=== PATIENT | female | born 1945 | race Caucasian/White ===

== ENCOUNTER 2019-01-12 07:17 | Day surgery (SDC) | payer BC, MEDICARE ==
[2019-01-12] MEDS ORDERED: Propofol 200 MG/20 ML SDV ONE (07:20)
[2019-01-12] MEDS ORDERED: Midazolam 1 MG/ML 2 ML SDV ONE (07:20)
[2019-01-12] MEDS ORDERED: fentaNYL 100 MCG/2 ML SDV ONE (07:20)
[2019-01-12] MEDS ORDERED: Sodium Chloride 0.9% 1,000 ML IV SCH (07:45)
--- NOTE | 2019-01-12 13:48 | OR ---
DATE OF PROCEDURE: 01/12/2019 SURGEON: Roberto Amin MD PROCEDURE: Colonoscopy. FINDINGS: Diverticulosis, mild, (approximately only 4-5 diverticula noted). COMPLICATIONS: None. HUMAN SERVICES MANAGER: None. PREOPERATIVE DIAGNOSIS: Screening colonoscopy. POSTOPERATIVE DIAGNOSIS: Screening colonoscopy. RISKS: Risks, benefits, alternatives, limitations including, but not limited to infection, bleeding, and perforation were explained to the patient, who wished to proceed. PROCEDURE IN DETAIL: The patient was placed in left lateral decubitus position. Digital rectal exam was performed without abnormality. Scope was introduced and advanced atraumatically to the ileocecal valve. Scope was brought back through the ascending, transverse, descending colon, and retroflexed. No evidence of old or new blood and no masses. The diverticulosis is described as mild and limited to sigmoid colon only. No abnormalities on retroflexion. The patient tolerated the procedure well. Roberto Amin MD /[id number]
== END 2019-01-12 10:12 | disposition home or self-care (01) ==
LOC: JP.SDS 07:17
PROVIDERS: ATTEND Surgery
DX: Z12.11 Encounter for screening for malignant neoplasm of colon (principal); K57.30 Diverticulosis of large intestine without perforation or abscess without bleeding
CPT/HCPCS: G0121; J2250; J2704; J3010; J7030

== ENCOUNTER 2019-01-25 19:52 | Emergency (ER) | payer MEDICARE ==
[2019-01-25] MEDS ORDERED: Aspirin 81 MG Tab.Chew PO ONE (20:35)
[2019-01-25] MEDS ORDERED: Nitroglycerin 0.4 MG Tab.SL SL PRN (20:35)
[2019-01-25] MEDS ORDERED: Morphine 4 MG/ML Syringe IVPUSH PRN (20:35)
[2019-01-25] MEDS ORDERED: Ondansetron 4 MG/2 ML SDV IVPUSH ONE (20:39)
[2019-01-25] MEDS ORDERED: Sodium Chloride 0.9% 1,000 ML IV SCH ×2 (20:45→23:00)
[2019-01-25] MEDS ORDERED: Piperacillin/Tazobactam 4.5 GM in Sodium Chloride 0.9% 100 ML IV SCH (21:45)
[2019-01-25] MEDS ORDERED: Piperacillin/Tazobactam 4.5 GM Vial ONE (22:11)
[2019-01-25] MEDS ORDERED: Sodium Chloride 0.9% 100 ML ONE (22:12)
[2019-01-25] MEDS ORDERED: HYDROmorphone 1 MG/ML Syringe IVPUSH ONE (22:19)
--- NOTE | 2019-01-25 22:23 | CRLCT ---
INDICATION: Acute onset chest and abdominal pain TECHNIQUE: CT chest, abdomen and pelvis acquired without IV contrast. COMPARISON: None FINDINGS: Chest: Cardiovascular structures: Heart size is normal. Thoracic aorta and main pulmonary artery are normal in caliber. Mediastinum and paras: No mass or adenopathy. There is a 1.6 cm soft tissue nodule which appears to arise from the left thyroid lobe. Lungs: Clear. Pleura and pericardium: No effusions. Chest wall and axilla: No mass or adenopathy. Bones: Unremarkable for age. Abdomen and Pelvis: Liver: Unremarkable. Spleen: Unremarkable. Pancreas: Peripancreatic fat stranding and fluid. No pancreatic calcifications. Gallbladder and bile ducts: Moderate distention of the gallbladder. 2.0 cm round hyperdensity within the gallbladder. Adrenal glands: Unremarkable. Kidneys: Unremarkable. GI tract: Colonic diverticulosis. Appendix is not seen. Vascular structures: Unremarkable. Lymph nodes: Unremarkable. Miscellaneous: Unremarkable. No free air or significant free fluid. Pelvic Organs: 2.3 cm round hyperdensity on the left superior aspect of the uterus. 1.7 cm round hypodensity in the left adnexa.. Bones: Unremarkable for age. 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 IMPRESSION: Acute pancreatitis. Recommend CT abdomen with IV contrast to assess for potential pancreatic necrosis or peripancreatic phlegmon or pseudocyst. Moderate distention of the gallbladder. Round hyperdensity in the gallbladder likely represents a gallstone. Recommend right upper quadrant ultrasound for further evaluation. Colonic diverticulosis. Cystic lesion in the left adnexa. Recommend nonemergent pelvic ultrasound for further evaluation. Small uterine fibroid. Likely left thyroid lobe nodule. Recommend nonemergent thyroid ultrasound for further characterization. Please note that all CT scans at this facility use dose modulation, iterative reconstruction, and/or weight-based dosing when appropriate to reduce radiation dose to as low as reasonably achievable. Dictated by Kari Siddiqi MD @ Jan 25 2019 10:12PM Signed by Dr. Kari Siddiqi @ Jan 25 2019 10:22PM
--- NOTE | 2019-01-25 23:08 | EDM.PDOC ---
ED HPI GENERAL MEDICAL PROBLEM - General Chief Complaint: Abdominal Pain Stated Complaint: STOMACH PAIN, SIDE AND BACK PAIN Time Seen by Provider: 01/25/19 20:21 Source of Information: Reports: Patient, Family () History Limitations: Reports: No Limitations - History of Present Illness INITIAL COMMENTS - FREE TEXT/NARRATIVE: chief complaint: abdominal pain This is a 73 year old female present to the ER for evaluation of abdominal pain. She reports intermittent abdominal pain for 2 weeks. This morning severe abdominal pain with nausea and vomiting. This evening reports has been vomiting all day, having 10 out of 10 pain. She reports had a physical last month for a colonoscopy. Is "healthy as a horse ", only take calcium vitamin. denies any alcohol use, drugs or smoking. only "bad" habit, drinks coffee. retired [employer]. Onset: Sudden (today nausea, vomiting, severe 10 out of 10 abdominal pain. radiates to back.), Gradual (2 week history of abdominal pain. ) Duration: Getting Worse Location: Reports: Abdomen, Radiates to (back) Quality: Reports: Sharp, Stabbing, Throbbing, Other (rates pain at 10 out of 10) Severity: Severe Improves with: Reports: None Worsens with: Reports: None Context: Reports: Other (abdominal pain for 2 weeks.) Associated Symptoms: Reports: Fever/Chills (chills, no fever), Loss of Appetite , Nausea/Vomiting middle abd Pain Score (Numeric/FACES): 10 - Related Data Allergies Allergy/AdvReac Type Severity Reaction Status Date / Time No Known Allergies Allergy Verified 01/25/19 20:30 Home Meds: Home Meds NK [No Known Home Meds] 01/27/14 [History] Past Medical History HEENT History: Reports: Cataract, Impaired Vision Other HEENT History: wears glasses Gastrointestinal History: Reports: Colon Polyp Genitourinary History: Reports: None 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: Musculoskeletal History: Reports: Arthritis - Infectious Disease History Infectious Disease History: Reports: Chicken Pox, Measles - Past Surgical History GI Surgical History: Reports: Colonoscopy, Polypectomy Female Surgical History: Reports: Breast Biopsy, Tubal Ligation Social & Family History - Family History HEENT: Reports: Glaucoma Cardiac: Reports: Other (See Below) Other Cardiac Family History: artificial heart valve-brother Musculoskeletal: Reports: Arthritis Neurological: Reports: Neuropathy, Diabetic, Other (See Below) Other Neurological Family History: TBI Endocrine/Metabolic: Reports: Diabetes, type II, IDDM Oncologic: Reports: Lung - Tobacco Use Smoking Status *Q: Never Smoker - Caffeine Use Caffeine Use: Reports: Coffee - Recreational Drug Use Recreational Drug Use: No - Living Situation & Occupation Living situation: Reports: Occupation: Retired (lives with her in [place], [place].) ED ROS GENERAL - Review of Systems Review Of Systems: See Below Constitutional: Reports: Chills, Decreased Appetite, Other (abdominal pain) HEENT: Reports: Glasses Respiratory: Reports: No Symptoms Cardiovascular: Reports: No Symptoms Endocrine: Reports: No Symptoms GI/Abdominal: Reports: Abdominal Pain, Decreased Appetite (nausea and vomiting) , Nausea, Vomiting, Other (bowel movement x 3 today, brown soft formed.) : Reports: Flank Pain (right flank and mid back pain) Musculoskeletal: Reports: Back Pain (mid back pain) Skin: Reports: No Symptoms Neurological: Reports: No Symptoms Psychiatric: Reports: No Symptoms Hematologic/Lymphatic: Reports: No Symptoms ED EXAM, GENERAL - Physical Exam Exam: See Below Exam Limited By: No Limitations General Appearance: Alert, Severe Distress Eye Exam: Bilateral Eye: Normal Inspection, PERRL Ears: Normal External Exam Ear Exam: Bilateral Ear: Auricle Normal, Canal Normal, TM normal Nose: Normal Inspection, Normal Mucosa, No Blood Throat/Mouth: Normal Inspection, Normal Lips, Normal Teeth, Normal Gums, Normal Oropharynx, Normal Voice, No Airway Compromise Head: Atraumatic, Normocephalic Neck: Normal Inspection, Supple, Non-Tender, Full Range of Motion Respiratory/Chest: No Respiratory Distress, Lungs Clear, Normal Breath Sounds, No Accessory Muscle Use, Chest Non-Tender Cardiovascular: Normal Peripheral Pulses, Regular Rate, Rhythm, No Murmur, Bradycardia (rate upper 40's low 50's.), Other (1+ edema of lower legs) Peripheral Pulses: 2+: Radial (L), Radial (R), Dorsalis Pedis (L), Dorsalis Pedis (R) GI/Abdominal: Distended, Guarding, Rebound, Tender, Abnormal Bowel Sounds ( hypoactive) (Female) Exam: Deferred Rectal (Female) Exam: Deferred Back Exam: Normal Inspection, Full Range of Motion Extremities: Normal Range of Motion, Pedal Edema (1+ edema of lower legs). No: Park's Sign Neurological: No Motor/Sensory Deficits Psychiatric: Normal Affect, Normal Mood Skin Exam: Warm, Dry, Intact, Normal Color, No Rash Lymphatic: No Adenopathy EKG INTERPRETATION EKG Date: 01/25/19 Rhythm: Other (bradycardia) Course - Vital Signs Last Recorded V/S: Last Vital Signs Temp 30.6 C L 01/25/19 20:32 Pulse 48 L 01/25/19 20:32 Resp 16 01/25/19 20:32 BP 164/66 H 01/25/19 20:32 Pulse Ox 98 01/25/19 20:32 - Orders/Labs/Meds Orders: Active Orders 24 hr Category Date Time Status Cardiac Education [RC] Click to Edit Care 01/25/19 20:35 Inactive Cardiac Monitoring [RC] .As Directed Care 01/25/19 20:35 Active EKG Documentation Completion [RC] ASDIRECTED Care 01/25/19 20:35 Active Oxygen Therapy [RC] ASDIRECTED Care 01/25/19 20:35 Active CULTURE BLOOD [BC] Urgent Lab 01/25/19 21:16 Received CULTURE BLOOD [BC] Urgent Lab 01/25/19 21:16 Received UA W/MICROSCOPIC [URIN] Urgent Lab 01/25/19 20:23 Ordered Morphine Med 01/25/19 20:35 Active 4 mg IVPUSH Q10M PRN Piperacillin/Tazobactam [Zosyn] 4.5 gm Med 01/25/19 21:45 Active Sodium Chloride 0.9% [Normal Saline] 100 ml IV Q6H Sodium Chloride 0.9% @ 125 MLS/HR (1000ml) Med 01/25/19 23:00 Ordered Sodium Chloride 0.9% [Normal Saline] 1,000 ml IV ASDIRECTED Sodium Chloride 0.9% [Normal Saline] 1,000 ml Med 01/25/19 20:45 Active IV ASDIRECTED Blood Culture x2 Reflex Set [OM.PC] Urgent Oth 01/25/19 21:16 Ordered EKG 12 Lead [EK] Urgent Ther 01/25/19 20:35 Ordered Medication Orders Sodium Chloride (Normal Saline) 1,000 mls @ 999 mls/hr IV ASDIRECTED LEE Last Admin: 01/25/19 21:34 Dose: 999 mls/hr Piperacillin Sod/Tazobactam (Sod 4.5 gm/ Sodium Chloride) 100 mls @ 200 mls/hr IV Q6H LEE Last Admin: 01/25/19 22:39 Dose: 200 mls/hr Sodium Chloride (Normal Saline) 1,000 mls @ 125 mls/hr IV ASDIRECTED LEE Morphine Sulfate (Morphine) 4 mg IVPUSH Q10M PRN PRN Reason: Chest Pain Stop: 01/26/19 20:36 Last Admin: 01/25/19 21:01 Dose: 4 mg Labs: Laboratory Tests 01/25/19 01/25/19 01/25/19 Range/Units 20:35 20:35 20:35 WBC 20.7 H (4.5-11.0) K/uL RBC 5.98 H (3.30-5.50) M/uL Hgb 16.1 H (12.0-15.0) g/dL Hct 48.2 H (36.0-48.0) % MCV 81 (80-98) fL MCH 27 (27-31) pg MCHC 33 (32-36) % Plt Count 209 (150-400) K/uL Neut % (Auto) 64 (36-66) % Lymph % (Auto) 33 (24-44) % [place] % (Auto) 3 (2-6) % Eos % (Auto) 0 L (2-4) % Baso % (Auto) 0 (0-1) % PT 11.2 (9.5-12.0) sec INR 1.04 (0.80-1.20) Sodium 142 (140-148) mmol/L Potassium 3.7 (3.6-5.2) mmol/L Chloride 106 (100-108) mmol/L Carbon Dioxide 23 (21-32) mmol/L Anion Gap 13.1 (5.0-14.0) mmol/L BUN 14 (7-18) mg/dL Creatinine 0.8 (0.6-1.0) mg/dL Est Cr Clr Drug Dosing 52.18 mL/min Estimated GFR (MDRD) > 60 (>60) Glucose 225 H (74-106) mg/dL Lactic Acid (0.4-2.0) mmol/L Calcium 9.2 (8.5-10.1) mg/dL Total Bilirubin 1.7 H (0.2-1.0) mg/dL AST 180 H (15-37) U/L ALT 87 H (12-78) U/L Alkaline Phosphatase 128 H (46-116) U/L Creatine Kinase 76 (26-192) U/L CK-MB (CK-2) 0.9 (0-3.6) mg/mL Troponin I < 0.017 (0.000-0.056) ng/mL Total Protein 6.9 (6.4-8.2) g/dL Albumin 3.8 (3.4-5.0) g/dL Globulin 3.1 (2.3-3.5) g/dL Albumin/Globulin Ratio 1.2 (1.2-2.2) Amylase (25-115) U/L Lipase 10384 H (73-393) U/L Procalcitonin ng/mL 01/25/19 01/25/19 01/25/19 Range/Units 21:17 21:17 22:20 WBC (4.5-11.0) K/uL RBC (3.30-5.50) M/uL Hgb (12.0-15.0) g/dL Hct (36.0-48.0) % MCV (80-98) fL MCH (27-31) pg MCHC (32-36) % Plt Count (150-400) K/uL Neut % (Auto) (36-66) % Lymph % (Auto) (24-44) % [place] % (Auto) (2-6) % Eos % (Auto) (2-4) % Baso % (Auto) (0-1) % PT (9.5-12.0) sec INR (0.80-1.20) Sodium (140-148) mmol/L Potassium (3.6-5.2) mmol/L Chloride (100-108) mmol/L Carbon Dioxide (21-32) mmol/L Anion Gap (5.0-14.0) mmol/L BUN (7-18) mg/dL Creatinine (0.6-1.0) mg/dL Est Cr Clr Drug Dosing mL/min Estimated GFR (MDRD) (>60) Glucose (74-106) mg/dL Lactic Acid 1.9 (0.4-2.0) mmol/L Calcium (8.5-10.1) mg/dL Total Bilirubin (0.2-1.0) mg/dL AST (15-37) U/L ALT (12-78) U/L Alkaline Phosphatase (46-116) U/L Creatine Kinase (26-192) U/L CK-MB (CK-2) (0-3.6) mg/mL Troponin I (0.000-0.056) ng/mL Total Protein (6.4-8.2) g/dL Albumin (3.4-5.0) g/dL Globulin (2.3-3.5) g/dL Albumin/Globulin Ratio (1.2-2.2) Amylase 86999 H (25-115) U/L Lipase (73-393) U/L Procalcitonin < 0.05 ng/mL Meds: Medications Generic Name Dose Route Start Last Admin Trade Name Freq PRN Reason Stop Dose Admin Sodium Chloride 1,000 mls @ 999 mls/hr 01/25/19 20:45 01/25/19 21:34 Normal Saline IV 999 mls/hr ASDIRECTED LEE Administration Piperacillin Sod/Tazobactam 100 mls @ 200 mls/hr 01/25/19 21:45 01/25/19 22: 39 Sod 4.5 gm/ Sodium Chloride IV 200 mls/hr Q6H LEE Administration Sodium Chloride 1,000 mls @ 125 mls/hr 01/25/19 23:00 Normal Saline IV ASDIRECTED LEE Morphine Sulfate 4 mg 01/25/19 20:35 01/25/19 21:01 Morphine IVPUSH 01/26/19 20:36 4 mg Q10M PRN Administration Chest Pain Discontinued Medications Generic Name Dose Route Start Last Admin Trade Name Freq PRN Reason Stop Dose Admin Aspirin 324 mg 01/25/19 20:35 Aspirin PO 01/25/19 20:36 ONETIME ONE Hydromorphone HCl 1 mg 01/25/19 22:19 01/25/19 22:36 Dilaudid IVPUSH 01/25/19 22:20 1 mg ONETIME ONE Administration Sodium Chloride Confirm 01/25/19 22:12 01/25/19 22:39 Normal Saline Administered 01/25/19 22:13 Not Given Dose 100 mls @ as directed .ROUTE .STK-MED ONE Nitroglycerin 0.4 mg 01/25/19 20:35 Nitrostat SL 01/26/19 20:35 Q5M PRN Chest Pain Ondansetron HCl 4 mg 01/25/19 20:39 01/25/19 21:01 Zofran IVPUSH 01/25/19 20:40 4 mg ONETIME ONE Administration Piperacillin Sod/Tazobactam Sod Confirm 01/25/19 22:11 01/25/19 22:39 Zosyn Administered 01/25/19 22:12 Not Given Dose 4.5 gm .ROUTE .STK-MED ONE - Re-Assessments/Exams Free Text/Narrative Re-Assessment/Exam: 01/25/19 Labs: CBC, CMP, LIPASE,AMYLASE, UA, TROPONIN, CK, LACTIC ACID, PROCALCITONIN IMAGING: CT CHEST, ABDOMEN, PELVIS MEDS: MORPHINE 4 MG, DILAUDID 1 MG IV, ZOFRAN 4 MG IV, ZOSYN 4.5GM IV, NORMAL SALIN 1LITER, THEN MAINTENANCE AT 125ML/HR. labs: WBC 20.7 hgb 16.2, abnormal Liver function, Lipase 48,588 Imaging: acute pancreatitis, gallstones, colonic diverticulosis, uterine fibroid , thyroid lobe nodule Consult with Surgery Service at [place], recommends higher level of care and transfer Consult with [facility] Dr. Ortiz accepting patient for transfer and admission. reviewed plan of care with and Mrs. Suarez, agree with plan of care. Departure - Departure Time of Disposition: 23:25 Disposition: DC/Tfer to Acute Hospital 02 Condition: Serious Clinical Impression: Pancreatitis - Discharge Information *PRESCRIPTION DRUG MONITORING PROGRAM REVIEWED*: Not Applicable *COPY OF PRESCRIPTION DRUG MONITORING REPORT IN PATIENT ABHILASH: Not Applicable Instructions: Acute Pancreatitis, [id number], Lipase Test Referrals: Magdalena Burgos PA-C [Primary Care Provider] - Care Plan Goals: transfer to [facility] for admission. - Problem List & Annotations (1) Pancreatitis, acute SNOMED Code(s): 427813213 Code(s): K85.90 - ACUTE PANCREATITIS WITHOUT NECROSIS OR INFECTION, UNSP Status: Acute Priority: High Current Visit: Yes Qualifiers: Pancreatitis type: unspecified pancreatitis type Acute pancreatitis complication: unspecified Qualified Code(s): K85.90 - Acute pancreatitis without necrosis or infection, unspecified (2) Acute calculous cholecystitis SNOMED Code(s): 74672146458568 Code(s): K80.00 - CALCULUS OF GALLBLADDER W ACUTE CHOLECYST W/O OBSTRUCTION Status: Acute Priority: High Current Visit: Yes - Problem List Review Problem List Initiated/Reviewed/Updated: Yes - My Orders Last 24 Hours: My Active Orders 01/25/19 20:23 UA W/MICROSCOPIC [URIN] Urgent 01/25/19 20:35 Cardiac Education [RC] Click to Edit Cardiac Monitoring [RC] .As Directed EKG Documentation Completion [RC] ASDIRECTED Oxygen Therapy [RC] ASDIRECTED Morphine 4 mg IVPUSH Q10M PRN EKG 12 Lead [EK] Urgent 01/25/19 20:45 Sodium Chloride 0.9% [Normal Saline] 1,000 ml IV ASDIRECTED 01/25/19 21:16 CULTURE BLOOD [BC] Urgent CULTURE BLOOD [BC] Urgent Blood Culture x2 Reflex Set [OM.PC] Urgent 01/25/19 21:45 Piperacillin/Tazobactam [Zosyn] 4.5 gm Sodium Chloride 0.9% [Normal Saline] 100 ml IV Q6H 01/25/19 23:00 Sodium Chloride 0.9% @ 125 MLS/HR (1000ml) Sodium Chloride 0.9% [Normal Saline] 1,000 ml IV ASDIRECTED - Assessment/Plan Last 24 Hours: My Active Orders 01/25/19 20:23 UA W/MICROSCOPIC [URIN] Urgent 01/25/19 20:35 Cardiac Education [RC] Click to Edit Cardiac Monitoring [RC] .As Directed EKG Documentation Completion [RC] ASDIRECTED Oxygen Therapy [RC] ASDIRECTED Morphine 4 mg IVPUSH Q10M PRN EKG 12 Lead [EK] Urgent 01/25/19 20:45 Sodium Chloride 0.9% [Normal Saline] 1,000 ml IV ASDIRECTED 01/25/19 21:16 CULTURE BLOOD [BC] Urgent CULTURE BLOOD [BC] Urgent Blood Culture x2 Reflex Set [OM.PC] Urgent 01/25/19 21:45 Piperacillin/Tazobactam [Zosyn] 4.5 gm Sodium Chloride 0.9% [Normal Saline] 100 ml IV Q6H 01/25/19 23:00 Sodium Chloride 0.9% @ 125 MLS/HR (1000ml) Sodium Chloride 0.9% [Normal Saline] 1,000 ml IV ASDIRECTED Plan: transfer to [facility] for admission for further care and treatment.
== END 2019-01-25 23:50 ==
LOC: JP.ED 19:52
DX: K85.90 Acute pancreatitis without necrosis or infection, unspecified (principal)
CPT/HCPCS: 36415; 71250; 74176; 80053; 81001; 82150; 82550; 82553; 83605; 83690; 84145; 84484; 85025; 85610; 87040; 93005; 96361; 96365; 96375; 99285; J1170; J2270; J2405; J2543; J7030

== ENCOUNTER 2021-01-29 08:05 | Emergency (ER) | payer MEDICARE ==
[2021-01-29] MEDS ORDERED: Metoprolol Tartrate 5 MG/5 ML SDV IVPUSH ONE ×3 (08:10→08:32)
[2021-01-29] MEDS ORDERED: Sodium Chloride 0.9% 10 ML Syringe FLUSH PRN (08:10)
--- NOTE | 2021-01-29 08:19 | EDM.PDOC ---
ED HPI GENERAL MEDICAL PROBLEM - General Chief Complaint: Cardiovascular Problem Stated Complaint: ELVATED HEART RATE Time Seen by Provider: 01/29/21 08:05 Source of Information: Reports: Patient, Old Records, RN History Limitations: Reports: No Limitations - History of Present Illness INITIAL COMMENTS - FREE TEXT/NARRATIVE: 75 yo woman noted heart palpitations this AM as she was getting ready to come into the hospital for her scheduled colonoscopy. She had no SOB or CP. She recalls having something like this once this past summer that resolved on its own and she was not seen for it. Upon her arrival today for the colonoscopy she was found to be in a rapid, regular heart rhythm and referred to the ER. She is on no meds. Has had no recent illnesses. She denies calf pain or swelling. Onset: Today Onset Date: 01/29/21 Duration: Hour(s): Location: Reports: Chest Quality: Reports: Other (no pain) Severity: Moderate Improves with: Reports: None Worsens with: Reports: None Context: Reports: Other (see HPI) Associated Symptoms: Reports: No Other Symptoms Treatments MANAGER HOME: Reports: Other (see below) (none) - Related Data Allergies Allergy/AdvReac Type Severity Reaction Status Date / Time No Known Allergies Allergy Verified 01/29/21 08:17 Home Meds: Home Meds Calcium Carb/Vitamin D3/Vit K1 [Calcium + D Soft Chewable Tab] 1,200 mg PO DAILY 01/26/21 [History] Diltiazem HCl [Diltiazem 24Hr Cd] 180 mg PO DAILY #30 cap.er.24h 01/29/21 [Rx] Past Medical History HEENT History: Reports: Cataract, Impaired Vision Other HEENT History: wears glasses Gastrointestinal History: Reports: Colon Polyp Genitourinary History: Reports: None [employer] History: Reports: Musculoskeletal History: Reports: Arthritis - Infectious Disease History Infectious Disease History: Reports: Chicken Pox, Measles - Past Surgical History GI Surgical History: Reports: Colonoscopy, Polypectomy Female Surgical History: Reports: Breast Biopsy, Tubal Ligation Social & Family History - Family History HEENT: Reports: Glaucoma Cardiac: Reports: Other (See Below) Other Cardiac Family History: artificial heart valve-brother Musculoskeletal: Reports: Arthritis Neurological: Reports: Neuropathy, Diabetic, Other (See Below) Other Neurological Family History: TBI Endocrine/Metabolic: Reports: Diabetes, type II, IDDM Oncologic: Reports: Lung - Caffeine Use Caffeine Use: Reports: Coffee - Living Situation & Occupation Living situation: Reports: Occupation: Retired (lives with her in [place], [place].) ED ROS GENERAL - Review of Systems Review Of Systems: See Below Constitutional: Reports: No Symptoms HEENT: Reports: No Symptoms Respiratory: Reports: No Symptoms Cardiovascular: Reports: Palpitations GI/Abdominal: Reports: No Symptoms : Reports: No Symptoms Musculoskeletal: Reports: No Symptoms Skin: Reports: No Symptoms Neurological: Reports: No Symptoms ED EXAM, GENERAL - Physical Exam Exam: See Below Exam Limited By: No Limitations General Appearance: Alert, WD/WN, No Apparent Distress Eye Exam: Bilateral Eye: Normal Inspection Ears: Normal External Exam, Normal Canal, Hearing Grossly Normal. No: Hearing Loss Ear Exam: Bilateral Ear: Auricle Normal, Canal Normal, TM normal Nose: Normal Inspection, No Blood Throat/Mouth: Normal Inspection, Normal Lips, Normal Oropharynx, Normal Voice, No Airway Compromise Head: Atraumatic, Normocephalic Neck: Normal Inspection Respiratory/Chest: No Respiratory Distress, Lungs Clear, Normal Breath Sounds, No Accessory Muscle Use Cardiovascular: Regular Rate, Rhythm, No Edema, Tachycardia GI/Abdominal: Soft, Non-Tender Back Exam: Normal Inspection. No: CVA Tenderness (R), CVA Tenderness (L) Extremities: Normal Inspection, Normal Range of Motion, Non-Tender, No Pedal Edema Neurological: Alert, Oriented, CN II-XII Intact, Normal Cognition, No Motor/Sensory Deficits Psychiatric: Normal Affect, Normal Mood Skin Exam: Warm, Dry, Intact, Normal Color, No Rash ED CARDIOLOGY PROCEDURES - Cardioversion Time of Cardioversion: 09:00 Indication: Atrial Flutter with RVR Patient Counseled: Yes Informed Consent Obtained: Yes Preparation: IV Access, Airway Management Equipment, Supplemental Oxygen, Monitor, Other (anesthesia here, Dr. Zhang here.) Pre-Procedure Sedation: Propofol Cardioversion Energy: 100J Sync Mode: Monophasic Successful: Yes Number of Attempts: 1 Patient Condition Post Cardioversion: Improved Post Cardioversion EKG Reviewed: No (engine monitor shows NSR @ 80/min) #1 Interpretation EKG Date: 01/29/21 Time: 07:45 Rhythm: NSR Rate (Beats/Min): 140 Enders: Normal P-Wave: Present QRS: Normal ST-T: Normal QT: Prolonged Comparison: Change From Previous EKG (rate increase from 01/25/19. ? atrial tachycardia.) Course - Vital Signs Last Recorded V/S: Last Vital Signs Temp 35.5 C L 01/29/21 08:10 Pulse 120 H 01/29/21 08:45 Resp 16 01/29/21 08:45 BP 147/81 H 01/29/21 08:45 Pulse Ox 96 01/29/21 08:45 - Orders/Labs/Meds Orders: Active Orders 24 hr Category Date Time Status Cardiac Monitoring [RC] .As Directed Care 01/29/21 08:08 Active Sodium Chloride 0.9% [Saline Flush] Med 01/29/21 08:10 Active 10 ml FLUSH ASDIRECTED PRN Saline Lock Insert [OM.PC] Routine Oth 01/29/21 08:10 Ordered Medication Orders Sodium Chloride (Sodium Chloride 0.9% 10 Ml Syringe) 10 ml FLUSH ASDIRECTED PRN PRN Reason: Keep Vein Open Last Admin: 01/29/21 08:28 Dose: 10 ml Documented by: PREILOR Labs: Laboratory Tests 01/29/21 01/29/21 01/29/21 Range/Units 08:20 08:20 08:46 WBC 8.0 (4.5-11.0) K/uL RBC 5.92 H (3.30-5.50) M/uL Hgb 16.2 H (12.0-15.0) g/dL Hct 47.2 (36.0-48.0) % MCV 80 (80-98) fL MCH 27 (27-31) pg MCHC 34 (32-36) % Plt Count 175 (150-400) K/uL Sodium 140 (140-148) mmol/L Potassium 3.9 (3.6-5.2) mmol/L Chloride 104 (100-108) mmol/L Carbon Dioxide 23 (21-32) mmol/L Anion Gap 13.3 (5.0-14.0) mmol/L BUN 11 (7-18) mg/dL Creatinine 0.9 (0.6-1.0) mg/dL Est Cr Clr Drug Dosing 46.05 mL/min Estimated GFR (MDRD) > 60 (>60) Glucose 98 (74-106) mg/dL Calcium 8.8 (8.5-10.1) mg/dL Magnesium 2.1 (1.8-2.4) mg/dL Troponin I < 0.017 (0.000-0.056) ng/mL TSH, Ultra Sensitive 2.862 (0.358-3.740) uIU/mL Urine Color Yellow (YELLOW) Urine Appearance Clear (CLEAR) Urine pH 5.5 (5.0-8.0) Ur Specific [place] <= 1.005 L (1.008-1.030) Urine Protein Negative (NEGATIVE) mg/dL Urine Glucose (UA) Negative (NEGATIVE) mg/dL Urine Ketones 15 H (NEGATIVE) mg/dL Urine Occult Blood Trace-lysed H (NEGATIVE) Urine Nitrite Negative (NEGATIVE) Urine Bilirubin Negative (NEGATIVE) Urine Urobilinogen 0.2 (0.2-1.0) EU/dL Ur Leukocyte Esterase Negative (NEGATIVE) Urine RBC 0-5 (0-5) Urine WBC Not seen (0-5) Ur Epithelial Cells Rare Amorphous Sediment Not seen Urine Bacteria Not seen Urine Mucus Not seen Urine Other See note Meds: Medications Generic Name Dose Route Start Last Admin Trade Name Freq PRN Reason Stop Dose Admin Sodium Chloride 10 ml 01/29/21 08:10 01/29/21 08:28 Sodium Chloride 0.9% 10 Ml Syringe FLUSH 10 ml ASDIRECTED PRN Administration Keep Vein Open Discontinued Medications Generic Name Dose Route Start Last Admin Trade Name Demetra PRN Reason Stop Dose Admin Aspirin 324 mg 01/29/21 09:09 Aspirin 81 Mg Tab.Chew PO 01/29/21 09:10 ONETIME ONE Diltiazem HCl 20 mg 01/29/21 08:39 01/29/21 08:45 Diltiazem 25 Mg/5 Ml Sdv IVPUSH 01/29/21 08:40 Not Given ONETIME ONE Metoprolol Tartrate 5 mg 01/29/21 08:10 01/29/21 08:16 Metoprolol Tartrate 5 Mg/5 Ml Sdv IVPUSH 01/29/21 08:11 5 mg ONETIME ONE Administration Metoprolol Tartrate 5 mg 01/29/21 08:26 01/29/21 08:27 Metoprolol Tartrate 5 Mg/5 Ml Sdv IVPUSH 01/29/21 08:27 5 mg ONETIME ONE Administration Metoprolol Tartrate 5 mg 01/29/21 08:32 01/29/21 08:38 Metoprolol Tartrate 5 Mg/5 Ml Sdv IVPUSH 01/29/21 08:33 Not Given ONETIME ONE Metoprolol Tartrate 50 mg 01/29/21 08:34 01/29/21 08:37 Metoprolol Tartrate 50 Mg Tab PO 01/29/21 08:35 Not Given ONETIME ONE Propofol 80 mg 01/29/21 08:50 Propofol 200 Mg/20 Ml Sdv IVPUSH 01/29/21 08:51 ONETIME ONE Departure - Departure Time of Disposition: 09:35 Disposition: Home, Self-Care 01 Condition: Good Clinical Impression: Atrial flutter with rapid ventricular response, Encounter for cardioversion procedure Instructions: Atrial Flutter Referrals: Magdalena Burgos PA-C [Primary Care Provider] - Forms: ED Department Discharge Additional Instructions: Take aspirin 81 mg daily with food. Schedule an appt with your primary care provider to discuss whether or not you need to remain on blood thinners. Return if your heart beat gets rapid again like today. Discuss also with your provider rescheduling your colonoscopy. Take Diltiazem CD every day about this time for heart rate control and BP reduction. Sepsis Event Note (ED) - Focused Exam Vital Signs: Vital Signs Temp Pulse Pulse Resp BP BP Pulse Ox 01/29/21 08:45 120 H 16 147/81 H 96 01/29/21 08:38 129 H 147/81 H 01/29/21 08:37 127 H 147/81 H 01/29/21 08:28 120 H 18 144/78 H 95 01/29/21 08:27 126 H 144/78 H 01/29/21 08:16 140 H 153/85 H 01/29/21 08:10 35.5 C L 142 H 16 153/85 H 96 - My Orders Last 24 Hours: My Active Orders 01/29/21 08:08 Cardiac Monitoring [RC] .As Directed 01/29/21 08:10 Sodium Chloride 0.9% [Saline Flush] 10 ml FLUSH ASDIRECTED PRN Saline Lock Insert [OM.PC] Routine - Assessment/Plan Last 24 Hours: My Active Orders 01/29/21 08:08 Cardiac Monitoring [RC] .As Directed 01/29/21 08:10 Sodium Chloride 0.9% [Saline Flush] 10 ml FLUSH ASDIRECTED PRN Saline Lock Insert [OM.PC] Routine
[2021-01-29] MEDS ORDERED: Metoprolol Tartrate 5 MG in Sodium Chloride 0.9% 50 ML IV ONE (08:22)
[2021-01-29] MEDS ORDERED: Metoprolol Tartrate 50 MG Tab PO ONE (08:34)
[2021-01-29] MEDS ORDERED: Diltiazem 25 MG/5 ML SDV IVPUSH ONE (08:39)
[2021-01-29] MEDS ORDERED: Propofol 200 MG/20 ML SDV IVPUSH ONE (08:50)
[2021-01-29] MEDS ORDERED: Aspirin 81 MG Tab.Chew PO ONE (09:09)
[2021-01-29] MEDS ORDERED: Diltiazem 120 MG Cap.CD PO ONE (09:29)
--- NOTE | 2021-01-29 12:27 | PCM.PRNOTE ---
- Free Text/Narrative Note: Date of service: 01/29/2021 Proposed procedure: Synchronized cardioversion Preprocedure diagnosis: Paroxysmal atrial flutter with rapid ventricular response Post procedure diagnosis: Paroxysmal atrial flutter with rapid ventricular response Indication for procedure: James was evaluated today for management atrial flutter with symptoms and rapid ventricular response. Synchronized cardioversion was recommended as a primary treatment. Description of the procedure: James is currently located [facility]. We have revie wed the potential risks of electrical cardioversion including but not limited to: Superficial skin [place], ineffective treatment, other arrhythmias, reaction to anesthesia medications or potentially asystole. The benefits of the procedure have also been reviewed. At this time the patient wishes to proceed with electrical cardioversion. All necessary pre-procedure information and paperwork has been provided and completed, respectively. The patient was connected to cardioversion pads and monitoring equipment per protocol. Prior to the procedure, a timeout was held with nursing and anesthesia present to confirm the right patient and right procedure. Once appropriate anesthesia was applied the machine was charged to 100 Joules and a synchronized electrical shock was applied. The patient was successfully converted to normal sinus rhythm based on telemetry monitoring. They will remain in their current location until anesthesia has dissipated and the patient is more awake and alert. They will then be discharged to home once medically stable. There were no immediate complications noted from the procedure. Post procedure EKG is pending at the time of dictation. Shelton Zhang M.D.
== END 2021-01-29 09:42 | disposition home or self-care (01) ==
LOC: JP.ED 08:05
DX: I48.92 Unspecified atrial flutter (principal)
CPT/HCPCS: 36415; 80048; 81001; 83735; 84443; 84484; 85027; 92960; 96374; 99285; A9270; J2704; J3490

== ENCOUNTER → 2021-01-29 | Day surgery (SDC) | payer MEDICARE ==
[~2021-01-29] MED LIST: Sodium Chloride 0.9% 1,000 ML IV SCH
== END ==
LOC: JP.SDS 07:20
PROVIDERS: ATTEND Surgery
DX: Z12.11 Encounter for screening for malignant neoplasm of colon (principal); Z53.09 Procedure and treatment not carried out because of other contraindication
CPT/HCPCS: 93005

== ENCOUNTER 2024-08-06 06:59 | Emergency (ER) | payer MEDICARE ==
[2024-08-06] MEDS: Aspirin 81 MG Tab.Chew PO ONE (08:03)
[2024-08-06 08:11] LABS: BASOPHILS ABSOLUTE AUTO 0.03 K/uL (0.00-0.10); BASOPHILS PERCENT AUTO 0.4 % (0.1-1.3); EOSINOPHILS ABSOLUTE AUTO 0.04 K/uL (0.00-0.40); EOSINOPHILS PERCENT AUTO 0.5 % (0.0-5.4); HEMATOCRIT 42.9 % (34.3-46.0); HEMOGLOBIN 14.6 g/dL (11.2-15.5); IMMATURE GRAN PERCENT AUTO 0.2 % (0.0-0.7); LYMPHOCYTES ABSOLUTE AUTO 2.79 K/uL (0.8-3.3); LYMPHOCYTES PERCENT AUTO 32.6 % (11.4-47.7); MEAN CORPUSCULAR HEMOGLOBIN 28.9 pg (31.6-35.5); MONOCYTES PERCENT AUTO 3.5 % (3.3-12.6); NEUTROPHILS ABSOLUTE AUTO 5.37 K/uL (1.0-7.6); NEUTROPHILS PERCENT AUTO 62.8 % (40.0-78.1); PLATELET COUNT,PLT 134 K/uL (130-375); RED BLOOD CELL COUNT 5.05 M/uL (3.77-5.24); WHITE BLOOD CELL COUNT,WBC 8.6 K/uL (3.2-11.0)
[2024-08-06 08:25] LABS: A/G RATIO 1.1 (1.2-2.2); ALANINE AMINOTRANSFERASE,ALT 54 U/L (12-78); ALBUMIN 3.4 g/dL (3.4-5.0); ALKALINE PHOSPHATASE 139 U/L (46-116); ANION GAP 8.7 mmol/L (5.0-14.0); ASPARTATE AMNIOTRANSFERASE,AST 136 U/L (15-37); BLOOD UREA NITROGEN,BUN 14 mg/dL (7-18); CARBON DIOXIDE,CO2 28 mmol/L (21-32); CHLORIDE,CL 103 mmol/L (100-108); EST CRCL DRUG DOSING (CG) 38.97 mL/min; ESTIMATED GFR 58 mL/min (>60); GLUCOSE RANDOM 140 mg/dL (74-106); IMMATURE GRAN ABSOLUTE AUTO 0.02 K/uL (0.00-0.23); PROTEIN TOTAL,TP 6.4 g/dL (6.4-8.2); SODIUM,NA 140 mmol/L (140-148)
[2024-08-06 08:26] LABS: TROPONIN I HIGH SENSITIVITY < 4.0 pg/mL (<=60.3)
== END 2024-08-06 09:40 | disposition home or self-care (01) ==
LOC: JP.ED 06:59
DX: K59.04 Chronic idiopathic constipation (principal); Z79.899 Other long term (current) drug therapy; Z79.01 Long term (current) use of anticoagulants
CPT/HCPCS: 36415; 71045; 74018; 80053; 83605; 83690; 84484; 85025; 93005; 93010; 99283; 99284; A9270

== ENCOUNTER 2024-10-10 09:12 | Day surgery (SDC) | payer MEDICARE ==
[2024-10-10] MEDS: Lactated Ringers 1,000 ML IV SCH (10:03)
[2024-10-10] MEDS ORDERED: fentaNYL 50 MCG/ML SDV ONE (10:28)
[2024-10-10] MEDS ORDERED: Propofol 200 MG/20 ML SDV ONE (10:28)
== END 2024-10-10 13:15 | disposition home or self-care (01) ==
LOC: JP.SDS 09:12
PROVIDERS: ATTEND Surgery
DX: K57.30 Diverticulosis of large intestine without perforation or abscess without bleeding (principal)
CPT/HCPCS: 45378; J2704; J3010; J7120; 00811-QZ

== ENCOUNTER 2025-01-30 09:53 | Day surgery (SDC) | payer MEDICARE ==
[2025-01-30] MEDS: Lactated Ringers 1,000 ML IV SCH (11:00)
[2025-01-30] MEDS ORDERED: Bacitracin Oint 1 GM U/D Packet ONE (11:34)
[2025-01-30] MEDS ORDERED: Propofol 200 MG/20 ML SDV ONE (12:16)
[2025-01-30] MEDS ORDERED: fentaNYL 100 MCG/2 ML SDV ONE (12:17)
[2025-01-30] MEDS ORDERED: Midazolam 1 MG/ML 2 ML SDV ONE (12:17)
[2025-01-30] MEDS: Lidocaine 1% with EPINEPHrine 1:100,000 50 ML MDV ONE (14:31)
== END 2025-01-30 14:50 | disposition home or self-care (01) ==
LOC: JP.SDS 09:53
PROVIDERS: ATTEND Otolaryngology
DX: D03.39 Melanoma in situ of other parts of face (principal); L57.0 Actinic keratosis; I10 Essential (primary) hypertension; I48.91 Unspecified atrial fibrillation; Z79.01 Long term (current) use of anticoagulants; Z79.899 Other long term (current) drug therapy
CPT/HCPCS: 00300; 14040; J0665; J0690; J2250; J2704; J3010; J7120; J2003